=== PATIENT | male | born 1970 | race Caucasian/White ===

== ENCOUNTER 2018-01-13 08:45 | Emergency (ER) | payer BC ==
[~2018-01-13] VITALS: Ht 182.9 cm; Wt 100.7 kg
[2018-01-13 08:53] VITALS: BP 134/76
--- NOTE | 2018-01-13 09:03 | NUR ---
A 47 YO MALE BIB SELF FOR [place] FOR ONE MONTH. PT REPORTS THAT HE WAS SEEN AT [facility] A FEW WEEKS AGO, TOLD IT WAS A VIRUS. GIVEN ANTIBIOTICS, SHOTS, IMODIUM, AND NOTHING HAS PROVIDED RELIEF. DENIES N/V. DENIES ABD PAIN. ABD SOFT, NON-TENDER. DENIES APPETITE CHANGES. DENIES ANY PAIN AT THIS TIME. DENIES ANY FEVERS/ CHILLS. ER MD NOTIFIED. WILL CONTINUE TO MONITOR. SAFETY PRECAUTIONS IMPLEMENTED.
--- NOTE | 2018-01-13 09:08 | NUR ---
DR. TORRE EVALUATING PT. AT THIS TIME.
[2018-01-13] MEDS ORDERED: DIPHENOXYLATE /ATROPINE 2.5 MG TAB PO ONE (09:10)
[2018-01-13] MEDS ORDERED: NACL 0.9% 1,000 ML IV SCH (09:10)
[2018-01-13 09:41] LABS: BASOPHILS # (AUTO) 0.1 K/uL (0.00-0.22); EOSINOPHILS # (AUTO) 0.1 K/uL (0-0.4); EOSINOPHILS % (AUTO) 1.9 % (0.0-4.0); HEMATOCRIT 44.9 % (36-52); HEMOGLOBIN 15.1 g/dL (12.0-18.0); LYMPHOCYTES # (AUTO) 2.5 K/uL (2.0-11.5); LYMPHOCYTES % (AUTO) 34.8 % (20.5-51.1); MEAN CORPUSCULAR HEMOGLOBIN 33 pg (27-31); MEAN CORPUSCULAR HGB CONC 34 g/dL (33-37); MEAN CORPUSCULAR VOLUME 99.1 fL (80-94); MONOCYTES # (AUTO) 0.7 K/uL (0.8-1.0); MONOCYTES % (AUTO) 9.9 % (1.7-9.3); NEUTROPHILS # (AUTO) 3.8 K/uL (1.8-7.7); NEUTROPHILS % (AUTO) 52.4 % (42.2-75.2); PLATELET COUNT (AUTO) 172 K/uL (140-450); RED BLOOD CELL COUNT(AUTO) 4.53 MIL/uL (4.20-6.10); RED CELL DISTRIBUTION WIDTH 13.5 % (11.6-13.7); WHITE BLOOD COUNT (AUTO) 7.3 K/uL (4.8-10.8)
[2018-01-13 10:07] LABS: APPEARANCE,URINE CLEAR (CLEAR); BILIRUBIN,URINE NEGATIVE (NEGATIVE); BLOOD, URINE NEGATIVE (NEGATIVE); COLOR,URINE YELLOW (YELLOW); LEUKOCYTE ESTERASE ,URINE NEGATIVE (NEGATIVE); NITRITE, URINE NEGATIVE (NEGATIVE); UGLUCOSE NEGATIVE (NEGATIVE)
--- NOTE | 2018-01-13 10:10 | NUR ---
PT. RESTING COMFORTABLY IN BED, RR EVEN AND UNLABORED. VSS. FAMILY MEMBER AT BEDSIDE WILL CONTINUE TO MONITOR.
[2018-01-13 10:14] LABS: ANION GAP 4.6 (8-16); CARBON DIOXIDE 27.8 mmol/L (21-32); CREATININE 0.9 mg/dL (0.7-1.3); POTASSIUM 4.4 mmol/L (3.5-5.1)
[2018-01-13 10:16] LABS: ALBUMIN 3.6 g/dL (3.4-5.0); TOTAL BILIRUBIN 0.5 mg/dL (0.0-1.0)
--- NOTE | 2018-01-13 10:59 | NUR ---
PT. TAKEN TO CT SCAN VIA WHEELCHAIR.
--- NOTE | 2018-01-13 11:46 | NUR ---
pt. unable to provide stool specimen at this time, er md higginbotham notified, states " specimen is not needed at this time he can be discharged without specimen".
[2018-01-13 11:57] VITALS: BP 130/80
--- NOTE | 2018-01-13 11:57 | NUR ---
Patient discharged with v/s stable. Written and verbal after care instructions given and explained. Patient alert, oriented and verbalized understanding of instructions. Carried with steady gait. All questions addressed prior to discharge. ID band removed. Patient advised to follow up with PMD. Rx of lomotil given. Patient educated on indication of medication including possible reaction and side effects. Opportunity to ask questions provided and answered.
== END 2018-01-13 11:57 | disposition home or self-care (01) ==
LOC: MED 08:45
DX: K52.89 Other specified noninfective gastroenteritis and colitis (principal); Z86.59 Personal history of other mental and behavioral disorders; Z86.73 Personal history of transient ischemic attack (TIA), and cerebral infarction without residual deficits
CPT/HCPCS: 36415; 74177; 80053; 81003; 82150; 83690; 85025; 96360; 99285; Q9967; J7030